=== PATIENT | male | born 1980 | race Caucasian/White ===

== ENCOUNTER 2018-12-07 15:40 | Emergency (ER) | payer MEDICAID ==
[2018-12-07 15:47] VITALS: BP 136/81
--- NOTE | 2018-12-07 15:56 | ED Physician Documentation ---
PD HPI SYNCOPE - Stated complaint Stated Complaint: PASSED OUT/EAR INF - Chief complaint Chief Complaint: Cardiac - History obtained from History obtained from: Patient - History of Present Illness Witnessed: Unwitnessed (He states he had felt okay this morning and worked out with his and then had some lunch. He states he was feeling okay without any chest pain lightheadedness nor dyspnea while working out and then at home. He got into the shower and remembers feeling okay and then awakening on the floor with a bump on his head. His came into the bathroom and found him on the floor. She did not hear him fall per se. He was awake and conversant at that point a little dazed but not having any slurred speech vomiting or perseveration. He feels okay up and walking around since that time.) Timing - onset: How many hours ago (1) Duration: Unknown (likely seconds to a minute or so) Preceding symptoms: No: Headache, Chest pain, Abdominal pain, Light headed Associated symptoms: No: Chest pain, Palpitations, Nausea / vomiting, Abdominal pain Contributing factors: Other (was in the shower). No: Recent med change, Decreased PO intake Injury occurred: Head injury (contusion back of head) Similar symptoms before: Has not had sx before Recently seen: Clinic (He was treated for persistent and recurrent ear infection couple of weeks ago and finished Augmentin several days ago. He denied any diarrhea or GI upset. He states his ear is still hurting. He has had this intermittently since last summer without full clearance of his ear discomfort) Review of Systems Constitutional: denies: Fever Ears: reports: Loss of hearing (for months), Ear pain. denies: Tinnitus/ringing Nose: denies: Rhinorrhea / runny nose, Congestion Throat: denies: Sore throat Cardiac: denies: Chest pain / pressure (He works out vigorously 3-4 times a week without any lightheadedness, chest pain or dyspnea.) Respiratory: denies: Cough GI: denies: Nausea, Vomiting, Diarrhea, Bloody / black stool Skin: denies: Rash, Lesions Neurologic: reports: Syncope (just today; no prior similar), Head injury. denies: Altered mental status, Headache PD PAST MEDICAL HISTORY - Past Medical History Cardiovascular: None Respiratory: None Neuro: None Endocrine/Autoimmune: None - Present Medications Home Medications: Ambulatory Orders Medication Instructions Recorded Confirmed Albuterol Sulfate [Proair Hfa 1 - 2 puffs INH DAILY 12/07/18 12/07/18 Inhaler] Dexamethasone [Decadron] 4 mg PO DAILY #5 tablet 12/07/18 Fluticasone [Flonase] 1 sprays RONALD DAILY 12/07/18 12/07/18 RX: Cetirizine [ZyrTEC] 10 mg PO DAILY #15 tablet 12/07/18 RX: Doxycycline Hyclate 100 mg PO BID #20 capsule 12/07/18 - Allergies Allergies/Adverse Reactions: Allergies Allergy/AdvReac Type Severity Reaction Status Date / Time No Known Drug Allergies Allergy Verified 12/07/18 15:48 PD ED PE NORMAL - Vitals Vital signs reviewed: Yes - General General: Alert and oriented X 3, No acute distress, Well developed/nourished - HEENT HEENT: Pharynx benign, Other (small contusionb ack of head without any concussive symptoms here. ). No: Ears normal (left is normal. Right with purulence behind eardrum, and redness around it. Canal appears okay. ) - Neck Neck: Supple, no meningeal sign, No bony TTP, No adenopathy - Cardiac Cardiac: RRR, No murmur - Respiratory Respiratory: Clear bilaterally - Abdomen Abdomen: Soft, Non tender - Derm Derm: Normal color, Warm and dry - Extremities Extremities: No deformity, No tenderness to palpate - Neuro Neuro: Alert and oriented X 3, territory representative 2-12 intact, No motor deficit, No sensory deficit, Normal speech Eye Opening: Spontaneous Motor: Obeys Commands Verbal: Oriented GCS Score: 15 Results - Vitals Vitals: Vital Signs - 24 hr 12/07/18 15:44 Temperature 37 C Heart Rate 74 Respiratory 18 Rate Blood Pressure 136/81 H O2 Saturation 98 Oxygen O2 Source Room air - EKG (time done) presentation Rhythm: NSR [place]: Normal Intervals: Normal [place] QRS: Normal Ischemia: Normal ST segments. No: ST elevation c/w ischemia, ST depression Compare to prior EKG: Old EKG unavailable PD MEDICAL DECISION MAKING - ED course Complexity details: reviewed results, considered differential, d/w patient Departure - Departure Disposition: 01 Home, Self Care Clinical Impression: Syncope, Head contusion, Otitis media Condition: Stable Record reviewed to determine appropriate education?: Yes Instructions: ED Otitis Media Acute Adult, ED Syncope Vasovagal Follow-Up: Tyra Germain ARNP [Primary Care Provider] - Prescriptions: RX: Cetirizine [ZyrTEC] 10 mg PO DAILY #15 tablet Dexamethasone [Decadron] 4 mg PO DAILY #5 tablet RX: Doxycycline Hyclate 100 mg PO BID #20 capsule Comments: Presume this was a vasovagal episode of fainting (your blood pressure dropped transiently). Recheck or follow-up with your primary care if you have other episodes of fainting or lightheadedness without explanation. Stay well-hydrated as usual. For your ear infection, use the Decadron for inflammation of the eustachian tube and cetirizine to help with fluid in the middle ear. Doxycycline antibiotic as directed. Follow-up with your primary care. Discharge Date/Time: 12/07/18 17:11
[2018-12-07] MEDS ORDERED: CETIRIZINE 10 MG TABLET PO STA (16:58)
[2018-12-07] MEDS ORDERED: DEXAMETHASONE 10 MG/ML VIAL PO STA (16:58)
[2018-12-07] MEDS ORDERED: DOXYCYCLINE 100 MG TABLET PO STA (16:58)
[2018-12-07] MEDS ORDERED: CHERRY SYRUP 10 ML UDC PO ONE (16:58)
== END 2018-12-07 17:11 | disposition home or self-care (01) ==
LOC: ED 15:40
DX: R55 Syncope and collapse (principal); S00.03XA Contusion of scalp, initial encounter; H66.91 Otitis media, unspecified, right ear; W19.XXXA Unspecified fall, initial encounter; Y93.E1 Activity, personal bathing and showering; Y92.002 Bathroom of unspecified non-institutional (private) residence as the place of occurrence of the external cause
CPT/HCPCS: 93005; 99283; A9270

== ENCOUNTER 2020-12-14 17:06 | Emergency (ER) | payer MEDICAID, OTHER ==
--- NOTE | 2020-12-14 18:56 | ED Physician Documentation ---
History of Present Illness - Stated complaint Stated Complaint: RT LEG PX - Chief complaint Chief Complaint: Ext Problem - Additonal information Additional information: 40-year-old male is referred to the emergency department from our outpatient clinics for evaluation of 2 days posterior right knee swelling. Patient reports that he noticed it yesterday in the early afternoon. There are some pain with ambulation. No recent falls or trauma. No surgeries unilateral leg swelling. No history of blood clots or cancer. Patient was COVID-19 positive about 10 days ago. He denies any further cough fevers chills shortness of air. Review of Systems Constitutional: denies: Chills Eyes: reports: Reviewed and negative Ears: reports: Reviewed and negative Nose: reports: Reviewed and negative Throat: reports: Reviewed and negative Cardiac: denies: Chest pain / pressure, Palpitations Respiratory: denies: Dyspnea, Cough GI: denies: Abdominal Pain, Abdominal Swelling : denies: Dysuria, Frequency, Hesitancy Skin: denies: Rash, Lesions Musculoskeletal: reports: Joint pain (Posterior right knee.) Neurologic: reports: Reviewed and negative PD PAST MEDICAL HISTORY - Past Medical History Past Medical History: Yes Cardiovascular: None Respiratory: Asthma Neuro: None Endocrine/Autoimmune: None - Past Surgical History Past Surgical History: No - Present Medications Home Medications: Ambulatory Orders Medication Instructions Recorded Confirmed Albuterol Sulfate [Proair Hfa 1 - 2 puffs INH Q4HR PRN 12/07/18 12/14/20 Inhaler] Fluticasone [Flonase] 1 sprays RONALD DAILY 12/07/18 12/14/20 Cetirizine [ZyrTEC] 10 mg PO PRN PRN 12/14/20 12/14/20 Rivaroxaban [Xarelto] 10 mg PO DAILY #45 tablet 12/14/20 - Allergies Allergies/Adverse Reactions: Allergies Allergy/AdvReac Type Severity Reaction Status Date / Time No Known Drug Allergies Allergy Verified 12/14/20 17:10 - Social History Does the pt smoke?: No Smoking Status: Never smoker Does the pt drink ETOH?: No Does the pt have substance abuse?: No - Immunizations Immunizations are current?: Yes - POLST Patient has POLST: No PD ED PE EXPANDED - General General: Alert, No acute distress - Respiratory Respiratory: Clear to ausultation karishma. No: Distress, Labored - Extremities Extremities: Right knee (Mild swelling of the right posterior medial knee without palpable fluid. No erythema. No posterior calf pain tenderness.), Pedal Pulses Present. No: Right calf TTP/cord, Left calf TTP/cord Results - Vitals Vitals: Vital Signs - 24 hr 12/14/20 12/14/20 17:10 21:23 Temperature 37 C 37.0 C Heart Rate 82 104 H Respiratory 18 18 Rate Blood Pressure 135/83 H 118/84 H O2 Saturation 100 98 Oxygen O2 Source Room air - Labs Labs: Laboratory Tests 12/14/20 21:47 WBC 5.7 RBC 4.76 Hgb 14.8 Hct 43.7 MCV 91.8 MCH 31.1 H MCHC 33.9 RDW 12.5 Plt Count 179 MPV 9.5 Neut # (Auto) 2.5 Lymph # (Auto) 1.9 [place] # (Auto) 0.6 Eos # (Auto) 0.7 Baso # (Auto) 0.0 Absolute Nucleated RBC 0.00 Nucleated RBC % 0.0 - Rads (name of study) Right leg US DVT Radiology: Final report received (Of deep venous thrombosis. Superficial thrombophlebitis from the level of the distal thigh to the distal calf. Likely the greater saphenous vein or branch thereof) PD MEDICAL DECISION MAKING - ED course Complexity details: reviewed results, re-evaluated patient, d/w patient ED course: 40-year-old male presents the emergency department for evaluation of right lower leg swelling behind his knee that began yesterday. By Wells criteria he is very low risk for a DVT though he was recently COVID-19 positive. Ultrasound of the right leg does show a thrombus within the greater saphenous vein from the level of the distal mid thigh to the distal calf. Up-to-date evaluation inudcates an SVT in proximity (3 to 5 cm) to the deep venous system, particularly if involving the great saphenous vein or small sa phenous vein Considered intermediate risk for complications and the recommendation Is for prophylactic anticoagulation. Therefore screening CBC and chemistry was obtained. The patient will be started on Xarelto 10 mg daily based on up-to-date recommendations (10 mg daily for 45 days). He will be advised to have a repeat ultrasound within the next week and follow-up with primary care provider. Departure - Departure Disposition: 01 Home, Self Care Clinical Impression: Acute superficial venous thrombosis of right lower extremity Condition: Stable Record reviewed to determine appropriate education?: Yes Instructions: Rivaroxaban oral tablets Prescriptions: Rivaroxaban [Xarelto] 10 mg PO DAILY #45 tablet Comments: Reinaldo you were seen in the emergency department today For pain behind the right knee with mild swelling. The ultrasound today completed shows that you do have a superficial vein thrombus within the greater saphenous vein from the level of your mid thigh to the distal calf. The cause of this thrombus is not clear though it may be related to your recent COVID-19 vaccination. As we discussed based on the location of this thrombus you are considered i ntermediate risk for complications due to a thrombus. Therefore the recommendation is to start prophylactic anticoagulation. I have ordered a medication called Xarelto to be taken once daily for the next 45 days. You should have a repeat ultrasound of the right leg completed in the next 1 to 2 weeks. This is to reevaluate and ensure that the thrombus is not growing. As we discussed Xarelto is considered an anticoagulant and you must be very careful with simple cuts or any falls or trauma. If you fall and strike your head, develop blood in your urine, have bloody stools or black stools, develop a sudden severe headache you must return immediately to the emergency department. Do not take any other medications such as ibuprofen, naproxen or aspirin while taking Xarelto. It does increase your bleeding risk. If at any point you develop right leg swelling or develop chest pain or shortness of breath also return immediately to the emergency department.
--- NOTE | 2020-12-14 20:55 | Ultrasound Report ---
PROCEDURE: Duplex Ext Veins Right INDICATIONS: COVID 19 +; swellign behind knee. r/o DVT TECHNIQUE: Real-time imaging, as well as color and pulse Doppler interrogation, were performed of the lower extr emity deep veins from the inguinal ligament to the popliteal fossa. COMPARISON: None. FINDINGS: The deep veins are normally compressible, and free of intraluminal thrombus. Color and pu lse Doppler demonstrate normal phasic intraluminal flow. There is normal augmentation response to di stal compression maneuver. There is thrombus within the greater saphenous vein (or branch) from the level of the distal thigh to the distal calf. IMPRESSION: No evidence of deep venous thrombosis. Superficial thrombophlebitis from the level of the distal thigh to the distal calf. Reviewed by: Dc Hand MD on 12/14/2020 8:54 PM PDT Approved by: Dc Hand MD on 12/14/2020 8:54 PM PDT Station ID: [id number]
[2020-12-14] MEDS ORDERED: IBUPROFEN 600 MG TABLET PO STA (21:14)
[2020-12-14] MEDS ORDERED: RIVAROXABAN 15 MG TABLET PO STA (21:22)
[2020-12-14 21:50] LABS: BASOPHILS % (AUTO) 0.5 %; EOSINOPHILS # (AUTO) 0.7 10^3/uL (0.0-0.7); EOSINOPHILS % (AUTO) 11.5 %; HCT - HEMATOCRIT 43.7 % (42.0-52.0); HGB - HEMOGLOBIN 14.8 g/dL (14.0-18.0); LYMPHOCYTES # (AUTO) 1.9 10^3/uL (1.5-3.5); LYMPHOCYTES % (AUTO) 33.7 %; MEAN CORPUSCULAR HEMOGLOBIN 31.1 pg (27.0-31.0); MEAN CORPUSCULAR HGB CONC 33.9 g/dL (32.0-36.0); MEAN CORPUSCULAR VOLUME 91.8 fL (80.0-94.0); MEAN PLATELET VOLUME 9.5 fL (7.4-11.4); MONOCYTES # (AUTO) 0.6 10^3/uL (0.0-1.0); MONOCYTES % (AUTO) 10.6 %; NEUTROPHILS # (AUTO) 2.5 10^3/uL (1.5-6.6); NEUTROPHILS % (AUTO) 43.5 %; PLT - PLATELET COUNT 179 10^3/uL (130-450); RED BLOOD COUNT 4.76 10^6/uL (4.70-6.10); RED CELL DISTRIBUTION WIDTH 12.5 % (12.0-15.0); WHITE BLOOD COUNT 5.7 x10^3/uL (4.8-10.8)
[2020-12-14 22:05] LABS: ALBUMIN 4.3 g/dL (3.2-5.5); ALBUMIN/GLOBULIN RATIO 1.5 (1.0-2.2); BILIRUBIN,TOTAL 0.4 mg/dL (0.2-1.0); CALCIUM 9.3 mg/dL (8.5-10.3); CREATININE 0.9 mg/dL (0.6-1.2); POTASSIUM 3.9 mmol/L (3.5-5.0); TOTAL PROTEIN 7.1 g/dL (6.7-8.2)
[2020-12-14 22:16] VITALS: BP 117/91
== END 2020-12-14 22:16 | disposition home or self-care (01) ==
LOC: ED 17:06
DX: I82.811 Embolism and thrombosis of superficial veins of right lower extremity (principal); U07.1 COVID-19
CPT/HCPCS: 36415; 80053; 83690; 85025; 93971; 99283; 99284; A9270

== ENCOUNTER 2024-03-24 19:55 | Emergency (ER) | payer MEDICAID, OTHER ==
[2024-03-24 20:19] VITALS: BP 116/73; O2SAT 98
--- NOTE | 2024-03-24 20:20 | ED Physician Documentation ---
History of Present Illness - Stated complaint Stated Complaint: RT FOOT INJ - Chief complaint Chief Complaint: Laceration - History obtained from History obtained from: Patient - History of Present Illness Timing: Today Pain level max: 3 Pain level now: 1 - Additonal information Additional information: Patient is a 43-year-old male who presents to the emergency department the laceration of the right great toe. He states he was getting down a box of tools when a tool fell out and struck him on the toe. Unknown last tetanus shot. He states he is not having any significant pain. He is on blood thinners. History of factor V Leiden. Review of Systems Constitutional: denies: Fever, Chills Respiratory: denies: Dyspnea, Cough GI: denies: Vomiting, Diarrhea Skin: denies: Rash Musculoskeletal: denies: Neck pain, Back pain Neurologic: denies: Headache PD PAST MEDICAL HISTORY - Past Medical History Cardiovascular: Pulmonary embolism Respiratory: Asthma Neuro: None Endocrine/Autoimmune: None Other Past Medical History: Factor 5. Bilateral PE's - Past Surgical History Past Surgical History: No - Present Medications Home Medications: Ambulatory Orders Medication Instructions Recorded Confirmed Albuterol Sulfate [Proair Hfa 1 - 2 puffs INH Q4HR PRN 12/07/18 12/14/20 Inhaler] Fluticasone [Flonase] 1 sprays RONALD DAILY 12/07/18 12/14/20 Cetirizine [ZyrTEC] 10 mg PO PRN PRN 12/14/20 12/14/20 Rivaroxaban [Xarelto] 10 mg PO DAILY #45 tablet 12/14/20 - Allergies Allergies/Adverse Reactions: Allergies Allergy/AdvReac Type Severity Reaction Status Date / Time No Known Drug Allergies Allergy Verified 03/24/24 20:06 - Social History Does the pt smoke?: No Smoking Status: Never smoker Does the pt drink ETOH?: No Does the pt have substance abuse?: No - Immunizations Immunizations are current?: Yes - POLST Patient has POLST: No PD ED PE NORMAL - Vitals Vital signs reviewed: Yes - General General: Alert and oriented X 3, No acute distress - Derm Derm: Warm and dry - Extremities Extremities: Other (2 cm linear laceration to the right great toe. Neurovascular intact. No deformity. No tendon injury.) - Neuro Neuro: Alert and oriented X 3 Results - Vitals Vitals: Vital Signs - 24 hr 03/24/24 20:00 Temperature 36.5 C Heart Rate 66 Respiratory 15 Rate Blood Pressure 116/73 O2 Saturation 98 Oxygen O2 Source Room air Procedures - Laceration (location) Right great toe Length in cm: 2 Wound type: Linear, Into subcut fat, Clean Neurovascular status: Sensory intact, Motor intact, Vascular intact Tendon involvement: Tendon intact Anesthesia: Lidocaine 1% Wound preparation: Irrigated copiously NS, Wound explored, To the base Skin layer closure: Nylon, Interrupted, Size #-0 - enter number (4) Other: Patient tolerated well, No complications, Neurovascular intact, Dressing applied, Tetanus booster given PD Medical Decision Making - ED course Complexity details: considered differential, d/w patient ED course: Patient with laceration of the right great toe. Tdap given. Laceration repaired. Tolerated well. Warnings of infection and instructions on wound care given at bedside. Patient counseled regarding signs and symptoms for which I believe and urgent re-evaluation would be necessary. Patient with good understanding of and agreement to plan and is comfortable going home at this time This document was made in part using voice recognition software. While efforts are made to proofread this document, sound alike and grammatical errors may occur. Departure - Departure Disposition: 01 Home, Self Care Clinical Impression: Toe laceration Qualifiers: Encounter type: initial encounter Toe: great toe Damage to nail status: without damage Foreign body presence: without foreign body Laterality: right Qualified Code(s): S91.111A - Laceration without foreign body of right great toe without damage to nail, initial encounter Condition: Good Instructions: ED Laceration Foot Follow-Up: your,doctor [Other] Comments: Please follow-up with your doctor in approximately 10 days for suture removal. Alternatively you can go to the one of the walk-in clinics or return here. Keep the wound clean. Return if you notice redness, swelling or drainage from the wound. You were also given a tetanus shot today. Forms: PCP List Discharge Date/Time: 03/24/24 20:55
[2024-03-24] MEDS: TETANUS/DIPHTHERIA/PERTUSSIS 0.5 ML SYRINGE IM ONE (20:36)
[2024-03-24] MEDS: LIDOCAINE-MPF 1% 5 ML VIAL SUBQ STA (20:37)
== END 2024-03-24 20:55 | disposition home or self-care (01) ==
LOC: ED 19:55
DX: S91.111A Laceration without foreign body of right great toe without damage to nail, initial encounter (principal); W20.8XXA Other cause of strike by thrown, projected or falling object, initial encounter; Y93.89 Activity, other specified
CPT/HCPCS: 12001; 90471; 99283